=== PATIENT | male | born 1940 | race Caucasian/White ===

== ENCOUNTER 2024-07-18 14:54 | Outpatient (CLI) | payer SELFPAY ==
[2024-07-18 15:01] LABS: Abs Immature Grans 0.08 10^3/uL (0.0-0.06); Absolute Basophil Count 0.18 10^3/uL (0.0-0.2); Absolute Eosinophil Count 0.42 10^3/uL (0.0-0.7); Absolute Lymphocyte Count 1.51 10^3/uL (1.2-3.4); Absolute Monocyte Count 0.76 10^3/uL (0.1-0.8); Basophils % 1.6 %; Eosinophils % 3.7 %; HCT 51.7 % (40.0-50.0); HGB 16.6 g/dL (13.5-17.5); Immature Grans % 0.7 %; Lymphocytes % 13.4 %; MCH 32.6 pg (27.0-33.0); MCHC 32.1 % (32.0-36.0); MCV 102 fL (80-95); MPV 11.7 fL (8.0-11.0); Monocytes % 6.7 %; Neutrophils % 73.9 %; Platelet Count 497 10^3/uL (130-400); RBC 5.09 10^6/uL (4.36-5.78); RDW 12.2 % (11.8-14.1); WBC 11.28 10^3/uL (4.4-10.8)
[2024-07-18 15:03] LABS: Absolute Neutrophil Count 8.34 10^3/uL (1.2-6.7)
[2024-07-18 15:35] LABS: ALT 21 U/L (16-63); AST 14 U/L (15-37); Albumin 3.5 g/dL (3.4-5.0); Alkaline Phosphatase 87 U/L (46-116); Anion Gap 3.6 mmol/L (3-11); BUN 24 mg/dL (7-18); Bilirubin, Total 0.44 mg/dL (0.2-1.0); CO2 30.4 mmol/L (21.0-32.0); CREATININE 1.4 mg/dL (0.70-1.30); Calcium 10.2 mg/dL (8.5-10.1); Chloride 109 mmol/L (98-107); Estimated GFR 48.95 (mL/min/1.73m2); FREE T4 0.97 ng/dL (0.76-1.46); Glucose 101 mg/dL (74-106); Magnesium 2.2 mg/dL (1.8-2.4); Potassium 5.2 mmol/L (3.5-5.1); Sodium 143 mmol/L (136-145); Total Protein 6.9 g/dL (6.4-8.2)
== END 2024-07-18 14:55 | disposition home or self-care (01) ==
LOC: LBO 14:56
PROVIDERS: Visit Provider Internal Medicine Medical Oncology
DX: C34.31 Malignant neoplasm of lower lobe, right bronchus or lung (principal)
CPT/HCPCS: 36415; 80053; 83735; 84439; 84443; 85025